=== PATIENT | female | born 1945 | race Caucasian/White ===

== ENCOUNTER → 2016-06-04 | Outpatient (CLI) | payer BC ==
[~2016-06-04] MED LIST: ACET-1311 PO; ACET650S10 RE; CHOL2000 PO; DOCU100C31 PO; DONE10TA12 PO; EFFSR75 PO; LATA0.009 OPB; LATA0.5S OP; LEVO88TA PO; LISI10TA PO; LORA-741 PO; MIRT30TA2 PO; NMN10 PO; QUET1TAB13 PO; SENN1TAB65 PO; SRQ/200 PO; TRAV0.00 OPB
[2016-06-04 08:55] LABS: BASO % 0.6 %; BASO ABS # 0.04 K/uL (0-0.2); COMPLETE YES; EOS % 2.6 %; HEMATOCRIT 43.8 % (37-47); IG% 0.3 %; LYMPH % 38.7 %; LYMPH ABS # 2.68 K/uL (1.2-3.4); MEAN CELL VOLUME 89.9 fL (80-100); MEAN CORPUSCULAR HEMOGLOBIN 30.4 pg (25-34); MEAN CORPUSCULAR HGB CONC 33.8 g/dl (32-36); MEAN PLATELET VOLUME 9.9 fL (7.4-10.4); MONO % 8.1 %; NEUT % 49.7 %; PLATELET COUNT 300 K/uL (130-400); RED BLOOD COUNT 4.87 M/uL (4.2-5.4); WHITE BLOOD COUNT 6.93 K/uL (4.8-10.8)
[2016-06-04 09:02] LABS: ALT/SGPT 10 U/L (12-78); BLOOD UREA NITROGEN 23 mg/dl (7-18); BUN/CREATININE RATIO 22.9 (10-20); CALCIUM 9.3 mg/dl (8.5-10.1); CARBON DIOXIDE 27 mmol/L (21-32); CHLORIDE 107 mmol/L (98-107); GLUCOSE 95 mg/dl (70-99); POTASSIUM 3.8 mmol/L (3.5-5.1); SODIUM 144 mmol/L (136-145)
[2016-06-04 09:12] LABS: ALB/GLOB RATIO 1.1 (0.9-2); ALKALINE PHOSPHATASE 63 U/L (45-117); AST/SGOT 17 U/L (15-37)
== END ==
LOC: C.LABCC 08:32
PROVIDERS: ATTEND Internal Medicine
DX: E03.9 Hypothyroidism, unspecified (principal); I10 Essential (primary) hypertension; Z86.73 Personal history of transient ischemic attack (TIA), and cerebral infarction without residual deficits

== ENCOUNTER 2016-09-22 12:25 | Emergency (ER) | payer BC ==
[~2016-09-22] VITALS: Ht 157.5 cm; Wt 72.0 kg
[~2016-09-22 12:25] MED LIST changes: -EFFSR75 PO; -LATA0.5S OP; -SENN1TAB65 PO; -SRQ/200 PO
[2016-09-22 12:30] VITALS: TEMP 36.9; Ht 157.5 cm; Wt 72.0 kg
[2016-09-22] MEDS ORDERED: DIPHTHERIA/TETANUS/PERTUSSIS 0.5 ML SYR/VIAL IM. ONE (12:45)
--- NOTE | 2016-09-22 13:13 | EMERGENCY ROOM VISIT NOTE ---
History Report prepared by Deejay: Eris Palmer Under the Supervision of: Dr. Ashok Castillo M.D. First contact with patient: 12:30 Stated Complaint: FALL History of Present Illness The patient is a 71 year old female who presents to the Emergency Room with complaints of a sudden fall that happened just prior to arrival. The nursing staff reports that the patient has a history of dementia. The patient fell backwards today and hit her head. The patient denies any loss of consciousness but notes head pain. The HPI is limited secondary to dementia. Source of History: nursing staff History Limited By: dementia Onset: prior to arrival Position: other (global) Quality: other (fall) Timing: other (sudden) Associated Symptoms: + headache, No LOC Review of Systems ROS is limited secondary to dementia. Past Medical & Surgical Medical Problems: (1) Alzheimer disease (2) CVA (cerebrovascular accident due to intracerebral hemorrhage) (3) Left lower lobe pneumonia (4) UTI (urinary tract infection) Surgical Problems: (1) H/O thyroidectomy Family History No pertinent family history Social History Smoking Status: Unknown if Ever Smoked Drug Use: none Marital Status: Housing Status: lives with family Occupation Status: retired Current/Historical Medications Scheduled Cholecalciferol (Vitamin D3), 2,000 UNITS PO DAILY Donepezil Hydrochloride (Aricept), 10 MG PO DAILY Latanoprost (Xalatan 0.005% Oph Amina), 1 DROPS OP HS Levothyroxine Sodium (Synthroid), 88 MCG PO DAILY Lisinopril (Prinivil), 10 MG PO DAILY Lorazepam (Ativan), 0.5 MG PO TID Memantine (Namenda), 10 MG PO BID Mirtazapine Soltab (Remeron Soltab), 30 MG PO HS Quetiapine Fumarate (Seroquel), 400 MG PO HS Quetiapine Fumarate (Seroquel), 200 MG PO QAM Sennosides-Docusate Sodium (Senna Plus), 1 TAB PO DAILY Venlafaxine Hcl (Effexor Extended Rel), 75 MG PO DAILY Scheduled PRN Acetaminophen (Tylenol), 650 MG PO Q4H PRN for Pain or Fever Allergies Coded Allergies: Ceftriaxone (Unverified Allergy, Unknown, Flushing, 02/10/16) questionable drugreaction during [id number], not anaphylaxis. Has tolerated multiple doses of Zosyn Loop Diuretics (Verified Allergy, Unknown, UNKNOWN, 02/04/16) Sulfa Antibiotics (Verified Allergy, Unknown, UNKNOWN, 02/04/16) Physical Exam Vital Signs Date Time Temp Pulse Resp B/P Pulse Ox O2 Delivery O2 Flow Rate FiO2 09/22/16 14:49 67 14 116/78 95 09/22/16 13:40 77 14 126/78 95 Room Air 09/22/16 12:30 15 09/22/16 12:30 36.9 80 15 142/93 94 Room Air Physical Exam GENERAL: Patient is a healthy-appearing well-nourished HEAD: 2.6 cm laceration, gaping EYES: Ocular movements intact pupils equal and react to light OROPHARYNX mucous membranes are moist no exudates present no erythema or edema present NECK: Supple no nuchal rigidity CHEST: Good equal expansion LUNGS: Clear and equal to auscultation CARDIAC: Normal S1 and S2 ABDOMEN: Soft nontender no guarding BACK: No CVA tenderness EXTREMITIES: No pain upon palpation normal muscle strength in all groups no clubbing cyanosis or edema NEURO: Patient is following commands is answering questions appropriately. Alert and oriented x3 Cranial Nerves 2-12 grossly intact Medical Decision & Procedures ER Provider Diagnostic Interpretation: Radiology results as stated below per my review and radiologist interpretation: HEAD CT NONCONTRAST CT DOSE: 776.86 mGycm HISTORY: Trauma Pt c/o fall, hit head TECHNIQUE: Multiaxial CT images of the head were performed without the use of intravenous contrast. Comparison: 02/04/2016 Findings: The paranasal sinuses and mastoid air cells are clear. The calvarium and skull base are intact. The ventricles and sulci are within normal limits. There is no mass, hematoma, midline shift, or acute infarct. Findings of scattered encephalomalacia as well as old post ischemic change are noted. Mild compensatory prominence of the left lateral ventricle unchanged. Calcification of the basal ganglia. Impression: No acute intracranial abnormality. Chronic change. Electronically signed by: Román Kuhn M.D. 09/22/2016 1:23 PM Dictated Date/Time: 09/22/2016 1:21 PM Medications Administered Medications (Trade) Dose Ordered Sig/Patricia Route Start Time Stop Time Status Last Admin Dose Admin Diphtheria/ Pertussis/Tetanus Vacc (Adacel Inj) 0.5 ml ONCE ONCE IM. 09/22/16 12:45 09/22/16 12:46 DC 09/22/16 13:40 0.5 ML Procedure Location: Scalp Total length: 2.6 cm Complexity: Simple Verbal consent was obtained after the risks and benefits were explained, including but not limited to bleeding, scarring, infection, pain, and bone/ nerve damage. At this time, the risks of the procedure are less than the risks of NOT performing the procedure. A time out was taken and the correct patient and site identified. The scalp was prepped with betadine. The target area was anesthetized with 500 ml of 1% lidocaine without epinephrine. Copious irrigation was performed using saline. The skin was re-prepped with betadine, the hair cleared from the wound, and a sterile field set. The wound was explored for foreign bodies and none found. Debridement was not performed. The wound edges were approximated using 4 surgical mery in the standard fashion. Hemostasis and excellent approximation was achieved. Antibacterial ointment and a sterile dressing applied. Detailed wound care instructions and signs and symptoms of infection reviewed with the []. No complications and the patient tolerated the procedure well. ED Course 1228: Past medical records reviewed. The patient was evaluated in room C07. A complete history and physical examination was performed. 1245: Ordered Adacel Inj 0.5 ml IM. 1405: Upon reexamination the patient is doing better. I discussed results and treatment plan with the patient. The patient is ready for discharge. Medical Decision Differential diagnosis: Etiologies such as fracture, dislocation, intra-abdominal, pneumothorax, intrathoracic , intracranial, neurologic, as well as other traumatic pathologies were entertained. This is a 71-year-old dementia patient who stood up from a chair and fell over striking her head. The patient is complaining of laceration to the back of her head. This was stapled as above. In addition the patient was sent for CAT scan of the head. This did not show any acute abnormalities. I believe the patient can be transferred back to the group home with head injury precautions Impression Primary Impression: Laceration Additional Impression: Head injury Scribe Attestation The scribe's documentation has been prepared under my direction and personally reviewed by me in its entirety. I confirm that the note above accurately reflects all work, treatment, procedures, and medical decision making performed by me. Departure Information Dispostion Home / Self-Care Referrals [facility] (PCP) Forms HOME CARE DOCUMENTATION FORM, IMPORTANT VISIT INFORMATION, School Instructions, Work Instructions Patient Instructions ED Head Injury Closed, My [facility], Tetanus Immune Globulin Human Solution for injection Additional Instructions [place] out in 7-10 days You have been examined and treated today on an emergency basis only. This is not a substitute for, or an effort to provide, complete comprehensive medical care. It is impossible to recognize and treat all injuries or illnesses in a single emergency department visit. It is therefore important that you follow up closely with [facility]. Call as soon as possible for an appointment. Thank you for your time and consideration. I look forward to speaking with you again soon. Please don't hesitate to call us if you have any questions. Problem Qualifiers Additional Impression: Head injury Encounter type: initial encounter Qualified Codes: S09.90XA - Unspecified injury of head, initial encounter
--- NOTE | 2016-09-22 13:25 | DIAGNOSTIC IMAGING REPORT ---
HEAD CT NONCONTRAST CT DOSE: 776.86 mGycm HISTORY: Trauma Pt c/o fall, hit head TECHNIQUE: Multiaxial CT images of the head were performed without the use of intravenous contrast. Comparison: 02/04/2016 Findings: The paranasal sinuses and mastoid air cells are clear. The calvarium and skull base are intact. The ventricles and sulci are within normal limits. There is no mass, hematoma, midline shift, or acute infarct. Findings of scattered encephalomalacia as well as old post ischemic change are noted. Mild compensatory prominence of the left lateral ventricle unchanged. Calcification of the basal ganglia. Impression: No acute intracranial abnormality. Chronic change. Electronically signed by: Román Kuhn M.D. 09/22/2016 1:23 PM Dictated Date/Time: 09/22/2016 1:21 PM
[2016-09-22] MEDS ORDERED: SRQ/200 PO (13:42)
[2016-09-22] MEDS ORDERED: LATA0.5S OP (13:42)
[2016-09-22] MEDS ORDERED: EFFSR75 PO (13:42)
[2016-09-22] MEDS ORDERED: SENN1TAB65 PO (13:42)
[2016-09-22 14:49] VITALS: BP 116/78; PULSE 67; O2SAT 95
== END 2016-09-22 14:55 ==
LOC: EDBD 12:25 → C.EDC 12:27
DX: S01.01XA Laceration without foreign body of scalp, initial encounter (principal); S09.90XA Unspecified injury of head, initial encounter; W18.30XA Fall on same level, unspecified, initial encounter; Y92.199 Unspecified place in other specified residential institution as the place of occurrence of the external cause; G30.9 Alzheimer's disease, unspecified; F02.80 Dementia in other diseases classified elsewhere, unspecified severity, without behavioral disturbance, psychotic disturbance, mood disturbance, and anxiety; Z86.73 Personal history of transient ischemic attack (TIA), and cerebral infarction without residual deficits; Z23 Encounter for immunization

== ENCOUNTER → 2016-10-02 | Outpatient (CLI) | payer BC ==
[~2016-10-02] MED LIST changes: -ACET650S10 RE; -DOCU100C31 PO; +EFFSR75 PO; -LATA0.009 OPB; +LATA0.5S OP; +SENN1TAB65 PO; +SRQ/200 PO; -TRAV0.00 OPB
[2016-10-02 08:20] LABS: BASO % 0.9 %; BASO ABS # 0.07 K/uL (0-0.2); COMPLETE YES; EOS % 3.1 %; HEMATOCRIT 39.2 % (37-47); IG% 0.3 %; LYMPH % 43.6 %; LYMPH ABS # 3.33 K/uL (1.2-3.4); MEAN CELL VOLUME 91.4 fL (80-100); MEAN CORPUSCULAR HEMOGLOBIN 29.8 pg (25-34); MEAN CORPUSCULAR HGB CONC 32.7 g/dl (32-36); MEAN PLATELET VOLUME 9.9 fL (7.4-10.4); MONO % 8.4 %; NEUT % 43.7 %; PLATELET COUNT 310 K/uL (130-400); RED BLOOD COUNT 4.29 M/uL (4.2-5.4); WHITE BLOOD COUNT 7.64 K/uL (4.8-10.8)
[2016-10-02 08:25] LABS: BLOOD UREA NITROGEN 20 mg/dl (7-18); BUN/CREATININE RATIO 22.6 (10-20); CARBON DIOXIDE 25 mmol/L (21-32); CHLORIDE 108 mmol/L (98-107); CREATININE 0.87 mg/dl (0.60-1.20); GLUCOSE 92 mg/dl (70-99); POTASSIUM 3.4 mmol/L (3.5-5.1); SODIUM 142 mmol/L (136-145)
[2016-10-02 08:57] LABS: CALCIUM 8.5 mg/dl (8.5-10.1)
[2016-10-02 09:03] LABS: URINE APPEARANCE CLOUDY (CLEAR); URINE BILIRUBIN NEG (NEG); URINE COLOR DK YELLOW; URINE EPITHELIAL CELL AUTO >30 /lpf (0-5); URINE NITRITE POS (NEG); UROBILINOGEN NEG (NEG)
[2016-10-02 09:06] LABS: MANUAL MICROSCOPIC REQUIRED? NO; REVIEW REQ? YES
--- NOTE | 2016-10-16 12:38 | CODING QUERY NO DIAGNOSIS ---
TREATMENT RENDERED WITHOUT A DIAGNOSIS To promote full compliance with coding requirements relating to patient care, physician participation is requested in all cases of development vice president uncertainty. Please assist us with providing a diagnosis/symptom for the test(s) below: A diagnosis/symptom was not documented on your Order. A valid diagnosis/symptom is required to bill all insurances. Please remember that we are unable to code a diagnosis of rule out, probable, possible, questionable, or suspected. Tests that require a diagnosis: * UA CLEAN CATCH DIAGNOSIS: * URINE CULTURE CLEAN CATCH DIAGNOSIS: * PARTIAL RENAL PROFILE DIAGNOSIS: * CBC W/ AUTO DIFF DIAGNOSIS: Provider Signature: Date: Thank you Akua Robles [employer] Information Management Once completed, please kindly fax back to [phone] For questions please call [phone]
== END ==
LOC: C.LABCC 07:59
PROVIDERS: ATTEND Internal Medicine
DX: R41.82 Altered mental status, unspecified (principal); R45.1 Restlessness and agitation

== ENCOUNTER → 2016-10-30 | Outpatient (CLI) | payer BC ==
[2016-10-30 18:01] LABS: URINE APPEARANCE CLEAR (CLEAR); URINE BILIRUBIN NEG (NEG); URINE COLOR YELLOW; URINE EPITHELIAL CELL AUTO 0-5 /lpf (0-5); URINE NITRITE NEG (NEG); URINE PH 5.5 (4.5-7.5); URINE SPECIFIC GRAVITY 1.019 (1.000-1.030); UROBILINOGEN NEG (NEG)
[2016-10-30 18:10] LABS: MANUAL MICROSCOPIC REQUIRED? NO; REVIEW REQ? NO
== END | disposition home or self-care (01) ==
LOC: C.LABCC 07:54
PROVIDERS: ATTEND Internal Medicine
DX: F03.90 Unspecified dementia, unspecified severity, without behavioral disturbance, psychotic disturbance, mood disturbance, and anxiety (principal); R45.1 Restlessness and agitation; F32.9 Major depressive disorder, single episode, unspecified; F91.8 Other conduct disorders; Z87.440 Personal history of urinary (tract) infections

== ENCOUNTER → 2017-03-08 | Outpatient (CLI) | payer BC ==
[2017-03-09 01:20] LABS: URINE APPEARANCE CLEAR (CLEAR); URINE BILIRUBIN NEG (NEG); URINE COLOR YELLOW; URINE EPITHELIAL CELL AUTO 0-5 /lpf (0-5); URINE NITRITE NEG (NEG); URINE SPECIFIC GRAVITY 1.021 (1.000-1.030); UROBILINOGEN NEG (NEG)
[2017-03-09 01:30] LABS: MANUAL MICROSCOPIC REQUIRED? NO; REVIEW REQ? NO
== END ==
LOC: C.LABCC 11:56
PROVIDERS: ATTEND Internal Medicine
DX: R41.82 Altered mental status, unspecified (principal)

== ENCOUNTER → 2017-04-07 | Outpatient (CLI) | payer BC ==
[2017-04-07 08:57] LABS: URINE APPEARANCE CLEAR (CLEAR); URINE BILIRUBIN NEG (NEG); URINE COLOR YELLOW; URINE NITRITE NEG (NEG); URINE SPECIFIC GRAVITY 1.015 (1.000-1.030); UROBILINOGEN NEG (NEG)
[2017-04-07 09:06] LABS: MANUAL MICROSCOPIC REQUIRED? NO; REVIEW REQ? NO
== END ==
LOC: C.LABCC 08:17
PROVIDERS: ATTEND Internal Medicine
DX: F41.9 Anxiety disorder, unspecified (principal)

== ENCOUNTER → 2017-04-14 | Outpatient (CLI) | payer BC ==
[2017-04-15 00:20] LABS: URINE APPEARANCE CLEAR (CLEAR); URINE BILIRUBIN NEG (NEG); URINE COLOR YELLOW; URINE NITRITE NEG (NEG); URINE SPECIFIC GRAVITY 1.012 (1.000-1.030); UROBILINOGEN NEG (NEG)
[2017-04-15 00:26] LABS: MANUAL MICROSCOPIC REQUIRED? YES; REVIEW REQ? NO
[2017-04-15 00:32] LABS: URINE BACTERIA NEG (NEG); URINE RBC 0-4 /hpf (0-4)
== END ==
LOC: C.LABCC 09:49
PROVIDERS: ATTEND Internal Medicine
DX: F68.8 Other specified disorders of adult personality and behavior (principal); R41.0 Disorientation, unspecified